=== PATIENT | male | born 1955 | race Hispanic/Latino ===

== ENCOUNTER → 2019-01-20 | Day surgery (SDC) | payer OTHER ==
[2019-01-15 09:31] LABS: BLOOD UREA NITROGEN 11 mg/dL (7-26); BUN/CREATININE RATIO 15 (6-25); CALCIUM 9.5 mg/dL (8.4-10.2); CARBON DIOXIDE 30 mmol/L (22-29); CHLORIDE 99 mmol/L (98-107); CREATININE, SERUM 0.71 mg/dL (0.72-1.25); EST GLOMERULAR FILTRATION RATE > 60 ML/MIN (60-); GLUCOSE 177 mg/dL (74-118); SODIUM 136 mmol/L (136-145)
[~2019-01-20] MED LIST: AMLODIPINE BESY10 MG PO; ATORVASTATIN CA20 MG PO; BACLOFEN10 MG PO; BUPIVACAINE 0.5%/EPI 30 ML SDV INJ ONE; CEFAZOLIN SOD 1 GM/NS 50ML 100 ML IV ONE; DEXAMETHASONE SOD PHOS INJ 4 MG/ML VIAL ONE; FENTANYL CITRATE/PF 100MCG/2 ML INJ ONE; GABAPENTIN300 MG PO; GLIPIZIDE10 MG PO; LEVETIRACETAM500 MG PO; LIDOCAINE HCL 2% LOCAL INJ 5 ML SDV VIAL INJ ONE; LISINOPRIL-HCT1 EAC1 PO; METFORMIN HCL500 MG PO; METOPROLOL SUCC25 MG PO; MIDAZOLAM HCL 2 MG/2 ML VIAL ONE; ONDANSETRON HCL INJ 2MG/ML 2ML 2 MG/ML VIAL ONE; PROPOFOL IV EMULSION 10 MG/ML 20 ML VIAL ONE; RANITIDINE HCL150 MG PO; SEVOFLURANE INHAL SOLN 250 ML PEN BTL ONE; TIZANIDINE HCL4 MG PO
--- OUTSIDE RECORDS SUMMARY | 2019-01-20 09:04 | XMS REPORT ---
Author Author [facility] Address Unknown Phone Unavailable Care Team Providers Care Cover Seamer Name Role Phone Unavailable Unavailable Payers Payer Name Policy Type Policy Number Effective Date Expiration Date Problems This patient has no known problems. Allergies, Adverse Reactions, Alerts This patient has no known allergies or adverse reactions. Medications This patient has no known medications. Encounters Start Date/Time End Date/Time Encounter Type Admission Type Attending [facility] Care Facility Care Department Encounter ID 2018-10-26 09:11:00 2018-10-26 09:11:00 Emergency [id number]
[2019-01-20 13:15] VITALS: BP 140/74
--- NOTE | 2019-01-21 15:47 | Operative Report ---
DATE OF PROCEDURE: 01/20/2019 SURGEON: Jose Alejandro Kraft MD PREOPERATIVE DIAGNOSES: 1. Left knee medial meniscus tear. 2. Left knee degenerative joint disease of the knee. POSTOPERATIVE DIAGNOSES: 1. Left knee medial meniscus tear. 2. Left knee degenerative joint disease of the knee. 3. Left knee intra-articular loose body. OPERATIONS AND PROCEDURES PERFORMED: The patient underwent left knee exam under anesthesia, left knee arthroscopy, left knee partial medial meniscectomy, left knee chondroplasty of the trochlea, the medial femoral condyle, the medial tibial plateau, and the lateral tibial plateau and removal of an intra-articular loose body from the medial compartment. ROTARY DRIER: MARICEL Kennedy. ANESTHESIA: General endotracheal intubation anesthesia. IV FLUIDS: Per the anesthesia record. BRIEF DESCRIPTION OF THE PATIENT'S OPERATIVE PROCEDURE: Mr. Manley was taken to the operating room, placed in supine position on the operating room table. Following induction of general anesthesia as well as endotracheal intubation, the patient's left lower extremity was examined under anesthesia. He was noted to have a mild effusion within the knee joints, but otherwise ligamentously stable knee. The patient's lower extremity was prepped and draped in standard surgical fashion. A two-port technique used to provide this patient arthroscopic evaluation of the knee joint. Examination of suprapatellar pouch and medial lateral gutters found no evidence of loose bodies. 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 The scope was advanced to the medial compartment. Examination of the medial compartment demonstrated a torn medial meniscus. There was also an intra-articular loose body in the medial compartment. A grasper was placed in the medial compartment and the loose body was removed. There was also chondromalacia of the medial femoral condyle and medial plateau and a torn medial meniscus. A combination of biting forceps and motorized shaver used to resect the torn portion of meniscus. Chondroplasties of the medial femoral condyle and medial tibial plateau performed at this time. The scope was then advanced to the intercondylar notch and the anterior cruciate ligament was identified and found to be intact. Scope was advanced to the lateral compartment and there was chondromalacia of the lateral tibial plateau. A chondroplasty of this surface was performed. The scope was then placed in suprapatellar pouch and a chondroplasty of the trochlea was performed. The knee was deflated with sterile normal saline. Each of the portal sites were closed using 4-0 nylon suture. The portal sites as well as knee itself was injected with 0.5% Marcaine with epinephrine. Sterile dressings were applied. The patient was awakened and taken to the postanesthesia care in stable condition. MD MARIPOSA Carbone/ABENA /[id number]
== END | disposition home or self-care (01) ==
LOC: OR 08:54
PROVIDERS: ATTEND Specialist
DX: S83.222A Peripheral tear of medial meniscus, current injury, left knee, initial encounter (principal); M17.12 Unilateral primary osteoarthritis, left knee; M23.42 Loose body in knee, left knee; K21.9 Gastro-esophageal reflux disease without esophagitis; E11.9 Type 2 diabetes mellitus without complications; I10 Essential (primary) hypertension; E78.5 Hyperlipidemia, unspecified; G40.909 Epilepsy, unspecified, not intractable, without status epilepticus; Z79.84 Long term (current) use of oral hypoglycemic drugs; Z01.810 Encounter for preprocedural cardiovascular examination; Z01.812 Encounter for preprocedural laboratory examination
CPT/HCPCS: 29881; 36415 ×2; 80048; 82948; 93005; J0690; J1100; J2001; J2250; J2405; J2704; J3010